=== PATIENT | male | born 1995 | race Caucasian/White ===

== ENCOUNTER → 2017-12-02 | Outpatient (CLI) | payer BC ==
[~2017-12-02] MED LIST: HYDR-757 PO
--- NOTE | 2017-12-02 16:59 | Diagnostic Imaging Report ---
PROCEDURE: MRI left joint lower extremity without contrast. TECHNIQUE: Multiplanar, multisequence non contrast-enhanced MRI of the left lower extremity was accomplished. INDICATION: Injury while running, left knee buckled and gave out. Instability since that time. Pain medially and laterally. COMPARISON: None. FINDINGS: No acute fracture or dislocation is seen in the left knee. Bone marrow signal is unremarkable. There is mild anterior translation of the tibia from the femur. There is a small left knee joint effusion. A small leaking Rosenberg's cyst is seen, with fluid leaking along the superficial fascia of the medial head of the gastrocnemius. The articular cartilage of the patellofemoral compartment appears intact. The articular cartilage in the medial and lateral compartments demonstrate mild heterogeneity with no large full-thickness defect seen. There is a complex bucket-handle tear of the medial meniscus, with the bucket-handle component flipped medially and anteriorly from the posterior horn and body. The residual posterior horn and body of the medial meniscus is markedly diminutive with complex tearing. This extends up into the anterior horn. The lateral meniscus demonstrates a complete radial tear posteriorly near the root. There is a complete tear of the anterior cruciate ligament. The posterior cruciate ligament is intact, but redundant. The medial collateral ligament demonstrates mild adjacent edema, likely related to the meniscal pathology, but appears intact. The lateral collateral ligamentous complex is intact. The extensor mechanism is intact. There is mild edema in Hoffa's fat pad. The surrounding soft tissues are otherwise unremarkable. IMPRESSION: 1. Complex bucket-handle tear of the medial meniscus in the right knee, flipped medially and anteriorly. 2. Full-thickness radial tear of the lateral meniscus near the posterior root. 3. Complete tear of the left anterior cruciate ligament. 4. Small left knee joint effusion. 5. Small leaking Rosenberg's cyst with fluid along the superficial fascia of the gastrocnemius. Dictated by: Dictated on workstation # [id number]
== END ==
LOC: RAD 15:55
PROVIDERS: ATTEND Nurse Practitioner Family
DX: S83.211A Bucket-handle tear of medial meniscus, current injury, right knee, initial encounter (principal); S83.281A Other tear of lateral meniscus, current injury, right knee, initial encounter; S83.511A Sprain of anterior cruciate ligament of right knee, initial encounter; M71.21 Synovial cyst of popliteal space [Baker], right knee; Y93.02 Activity, running
CPT/HCPCS: 73721

== ENCOUNTER 2019-01-07 08:30 | Emergency (ER) | payer BC ==
[~2019-01-07] VITALS: Ht 177 cm; Wt 84.4 kg
[~2019-01-07 08:30] MED LIST changes: -HURRICAINE EXT TUBE (BENZOCAINE) ONE; -HURRICAINE EXT TUBE (BENZOCAINE) XX PRN; -LACTATED RINGERS 1,000 ML IV ONE; -LACTATED RINGERS 1,000 ML IV STA; -MIDAZOLAM 2 MG/2 ML (VERSED) VIAL ONE; -OMEP40CA36 PO; -RANI150T90 PO; -SUCR1TAB36 PO; -proPOfol 200 MG/20 ML (DIPRIVAN) VIAL IV ONE
[2019-01-07] MEDS ORDERED: LACTATED RINGERS 1,000 ML IV ONE (10:15)
[2019-01-07] MEDS ORDERED: NS IV ONE (10:15)
[2019-01-07 10:22] LABS: BASOPHILS % (AUTO) 0 % (0-10); EOSINOPHILS # (AUTO) 0.1 10^3/uL (0.0-0.3); EOSINOPHILS % (AUTO) 1 % (0-10); HEMATOCRIT 40 % (40-54); HEMOGLOBIN 13.5 G/DL (13.3-17.7); LYMPHOCYTES # (AUTO) 1.7 X 10^3 (1.0-4.0); LYMPHOCYTES % (AUTO) 31 % (12-44); MEAN CORPUSCULAR HEMOGLOBIN 29 PG (25-34); MEAN CORPUSCULAR HGB CONC 33 G/DL (32-36); MEAN CORPUSCULAR VOLUME 86 FL (80-99); MEAN PLATELET VOLUME 9.9 FL (7.4-10.4); MONOCYTES # (AUTO) 0.8 X 10^3 (0.0-1.0); MONOCYTES % (AUTO) 15 % (0-12); NEUTROPHILS # (AUTO) 2.9 X 10^3 (1.8-7.8); NEUTROPHILS % (AUTO) 53 % (42-75); PLATELET COUNT 249 10^3/uL (130-400); RED CELL DISTRIBUTION WIDTH 13.2 % (10.0-14.5); WHITE BLOOD COUNT 5.6 10^3/uL (4.3-11.0)
--- NOTE | 2019-01-07 10:36 | ED GI ---
General Chief Complaint: Abdominal/GI Problems Stated Complaint: VOMITING BLOOD Nursing Triage Note: PT CO OF VOMITING BLOOD THIS AM AND HAVING DK STOOLS X3 YESTERDAY, SENT BY [facility] Sepsis Screen: No Definite Risk Source of Information: Patient Exam Limitations: No Limitations (W[place] VARNER MED STUDENT) History of Present Illness Date Seen by Provider: Jan 07, 2019 Time Seen by Provider: 10:20 Initial Comments The patient is a wd/wn 23 y/o male who is here with a chief complaint of vomiting blood. He states that this morning he vomited enough blood that it "turned the toilet water very red". He denies any previous occurrences. He is currently still nauseated but has not vomited since. The patient reports that he had 3 bouts of bloody bowel movements yesterday. He also reports subjective fever yesterday, mild shortness of breath for 3-4 days, and intermittent mild left lower quadrant abdominal pain. The patient admits to occasional heartburn/upper epigastric pain. He denies any diarrhea or recent illnesses. He admits to drinking up to 6 beers, 2-3 times per week. He reports that he last drank "a couple" beers on Friday. (W[employer] VARNER MED STUDENT) Timing/Duration: 1-3 Hours Severity/Quality: Mild, Aching Location: LLQ Radiation: No Radiation Activities at Onset: None Modifying Factors: Improves With Vomiting Associated Symptoms: No Fever/Chills; Nausea/Vomiting (JEFFREY CARRILLO MD) Allergies and Home Medications Allergies Coded Allergies: No Known Drug Allergies (Unverified , 12/24/13) Home Medications Hydrocodone Bit/Acetaminophen 1 Each Tablet, 1 EA PO Q6H PRN for MILD PAIN Prescribed by: PARMINDER MARTIN on 12/24/13 2230 Patient Home Medication List Home Medication List Reviewed: Yes (JEFFREY CARRILLO MD) Review of Systems Review of Systems Constitutional: No chills; fever EENTM: No Blurred Vision, No Double Vision Respiratory: Denies Cough; Shortness of Air Cardiovascular: Denies Chest Pain; Irregular Heart Rate Gastrointestinal: Blood Streaked Stools, Nausea, Vomiting ([employer] VARNER MED STUDENT) Constitutional: see HPI Respiratory: See HPI Gastrointestinal: See HPI Genitourinary: No Symptoms Reported Skin: no symptoms reported Psychiatric/Neurological: No Symptoms Reported (JEFFREY CARRILLO MD) All Other Systems Reviewed Negative Unless Noted: Yes (JEFFREY CARRILLO MD) Past Evznckh-Sdbhqz-Nxktcx Hx Past Med/Social Hx: Reviewed Nursing Past Med/Soc Hx (JEFFREY CARRILLO MD) Patient Social History Alcohol Use: Occasionally Uses Number of Drinks Today: 0 Recreational Drug Use: No Smoking Status: Never a Smoker Recent Foreign Travel: No Contact w/Someone Who Travel: No Recent Infectious Disease Expo: No Recent Hopitalizations: No (W[employer] VARNER STUDENT) Past Medical History Surgeries: Yes (R FA, L KNEE SCOPE) Respiratory: No Cardiac: No Neurological: No Reproductive Disorders: No Gastrointestinal: No Musculoskeletal: No Endocrine: No Cancer: No Psychosocial: No Integumentary: No Blood Disorders: No (W[employer] VARNER STUDENT) Family Medical History Reviewed Nursing Family Hx (JEFFREY CARRILLO MD) Physical Exam Vital Signs Vital Signs - First Documented 01/07/19 08:48 Temp 37.4 Pulse 75 Resp 18 B/P (MAP) 151/78 (102) Pulse Ox 98 (JEFFREY CARRILLO MD) Vital Signs Capillary Refill : Less Than 3 Seconds (WASHINGTON VARNER STUDENT) Height/Weight/BMI Height: 5'10" Weight: 155lbs. oz. 70.706643ez; 26.00 BMI Method:Stated General Appearance: WD/WN, no apparent distress Respiratory: chest non-tender, lungs clear, normal breath sounds Cardiovascular: regular rate, rhythm, no edema, no murmur Gastrointestinal: normal bowel sounds, soft, tenderness Rectal: normal exam, normal rectal tone, heme negative stool Back: normal inspection, no CVA tenderness, no vertebral tenderness Neurologic/Psychiatric: no motor/sensory deficits, alert, normal mood/affect, oriented x 3 Skin: normal color, warm/dry (WASHINGTON VARNER STUDENT) General Appearance: WD/WN, no apparent distress HEENT: PERRL/EOMI, pharynx normal Neck: full range of motion, supple Respiratory: lungs clear, normal breath sounds Cardiovascular: regular rate, rhythm, no murmur Gastrointestinal: non tender, soft Extremities: non-tender, normal inspection Back: normal inspection, no CVA tenderness, no vertebral tenderness Neurologic/Psychiatric: alert, normal mood/affect, oriented x 3 Skin: normal color, warm/dry (JEFFREY CARRILLO MD) Progress/Results/Core Measures Results/Orders Lab Results Laboratory Tests Test 01/07/19 10:10 01/07/19 10:21 Range/Units White Blood Count 5.6 4.3-11.0 10^3/uL Red Blood Count 4.68 4.35-5.85 10^6/uL Hemoglobin 13.5 13.3-17.7 G/DL Hematocrit 40 40-54 % Mean Corpuscular Volume 86 80-99 FL Mean Corpuscular Hemoglobin 29 25-34 PG Mean Corpuscular Hemoglobin Concent 33 32-36 G/DL Red Cell Distribution Width 13.2 10.0-14.5 % Platelet Count 249 130-400 10^3/uL Mean Platelet Volume 9.9 7.4-10.4 FL Neutrophils (%) (Auto) 53 42-75 % Lymphocytes (%) (Auto) 31 12-44 % Monocytes (%) (Auto) 15 H 0-12 % Eosinophils (%) (Auto) 1 0-10 % Basophils (%) (Auto) 0 0-10 % Neutrophils # (Auto) 2.9 1.8-7.8 X 10^3 Lymphocytes # (Auto) 1.7 1.0-4.0 X 10^3 Monocytes # (Auto) 0.8 0.0-1.0 X 10^3 Eosinophils # (Auto) 0.1 0.0-0.3 10^3/uL Basophils # (Auto) 0.0 0.0-0.1 10^3/uL Sodium Level 140 135-145 MMOL/L Potassium Level 3.8 3.6-5.0 MMOL/L Chloride Level 107 98-107 MMOL/L Carbon Dioxide Level 24 21-32 MMOL/L Anion Gap 9 5-14 MMOL/L Blood Urea Nitrogen 18 7-18 MG/DL Creatinine 1.07 0.60-1.30 MG/DL Estimat Glomerular Filtration Rate > 60 BUN/Creatinine Ratio 17 Glucose Level 91 70-105 MG/DL Calcium Level 9.2 8.5-10.1 MG/DL Corrected Calcium 9.0 8.5-10.1 MG/DL Total Bilirubin 0.3 0.1-1.0 MG/DL Aspartate Amino Transf (AST/SGOT) 16 5-34 U/L Alanine Aminotransferase (ALT/SGPT) 15 0-55 U/L Alkaline Phosphatase 37 L 40-136 U/L Total Protein 6.8 6.4-8.2 GM/DL Albumin 4.3 3.2-4.5 GM/DL Urine Color YELLOW Urine Clarity CLEAR Urine pH 8 5-9 Urine Specific Grimes 1.015 L 1.016-1.022 Urine Protein NEGATIVE NEGATIVE Urine Glucose (UA) NEGATIVE NEGATIVE Urine Ketones NEGATIVE NEGATIVE Urine Nitrite NEGATIVE NEGATIVE Urine Bilirubin NEGATIVE NEGATIVE Urine Urobilinogen NORMAL NORMAL MG/DL Urine Leukocyte Esterase NEGATIVE NEGATIVE Urine RBC (Auto) NEGATIVE NEGATIVE Urine RBC NONE /HPF Urine WBC NONE /HPF Urine Crystals NONE /LPF Urine Amorphous Sediment FEW SHANELLE PHOSPHATE H /LPF Urine Bacteria NEGATIVE /HPF Urine Casts NONE /LPF Urine Mucus NEGATIVE /LPF Urine Culture Indicated NO (JEFFREY CARRILLO MD) My Orders Orders - JEFFREY CARRILLO MD Cbc With Automated Diff (01/07/19 10:15) Comprehensive Metabolic Panel (01/07/19 10:15) Ua Culture If Indicated (01/07/19 10:15) Ed Iv/Invasive Line Start (01/07/19 10:15) Lactated Ringers (Lr 1000 Ml Iv Solution (01/07/19 10:15) Ns Iv 1000 Ml (Sodium Chloride 0.9%) (01/07/19 10:15) Fecal Occult Bedside (01/07/19 10:16) Chest Pa/Lat (2 View) (01/07/19 10:48) (JEFFREY CARRILLO MD) Medications Given in ED Current Medications Medications Dose Ordered Sig/Wolf Route Start Time Stop Time Status Last Admin Dose Admin Lactated Ringer's 1,000 ml @ 0 mls/hr Q0M ONCE IV 01/07/19 10:15 01/07/19 10:16 DC 01/07/19 10:31 1,000 MLS/HR (JEFFREY CARRILLO MD) Vital Signs/I&O 01/07/19 08:48 Temp 37.4 Pulse 75 Resp 18 B/P (MAP) 151/78 (102) Pulse Ox 98 (JEFFREY CARRILLO MD) Blood Pressure Mean: 102 Fecal Occult: Negative (W[employer] VARNER MED STUDENT) Progress Progress Note : Time: 10:30 Progress Note The patient is resting comfortably in the exam room. He will be evaluated with CBC, CMP, UA, and fecal occult blood tests. (W[employer] VARNER MED STUDENT) Progress Note : Progress Note As seen and evaluated the patient and agree with above except as indicated. Have directed the plan of care. Patient is here with vomiting blood today. Reports dark stools yesterday. Questionable fevers. States hasn't felt well and a couple days. Does drink a couple times a week. He is a student. We will check labs, UA and chest x-ray. Fecal occult blood test done and is negative. Monitor patient. 1155: Labs and chest x-ray reviewed. No acute findings. I did discuss the case with Dr. Kay and he will see him in office today at 1 PM. This was discussed with the patient who is in agreement. Discharged home with return precautions. Patient verbalize understanding instructions and agreement with plan. (JEFFREY CARRILLO MD) Diagnostic Imaging Diagonstic Imaging: Xray Plain Films/CT/US/NM/MRI: chest Comments [facility]. [place], [place] NAME: JAYCE MAGUIRE [facility] REC#: [id number] PT STATUS: REG ER : 1995 PHYSICIAN: JEFFREY CARRILLO MD ADMIT DATE: 01/07/19/ER Draft Date of Exam:01/07/19 CHEST PA/LAT (2 VIEW) INDICATION: Vomiting blood. TIME OF EXAM: 11:12 AM No prior studies are available for comparison. FINDINGS: The heart size is normal. The pulmonary vascularity is unremarkable. The lungs are clear. No infiltrate, effusion or pneumothorax is detected. IMPRESSION: No acute cardiopulmonary process is detected. Dictated on workstation # [id number] Dict: 01/07/19 1128 Trans: 01/07/19 1131 [id number] Interpreted by: ZULLY NAVA MD Electronically signed by: (JEFFREY CARRILLO MD) Departure Impression Primary Impression: Hematemesis Qualified Codes: K92.0 - Hematemesis Disposition: HOME, SELF-CARE Condition: Improved Departure-Patient Inst. Decision time for Depature: 11:57 (JEFFREY CARRILLO MD) Referrals: AZRA KAY FLOYD R MD (PCP/Family) Primary Care Physician Patient Instructions: Gastrointestinal Bleeding (DC) Add. Discharge Instructions: All discharge instructions reviewed with patient and/or family. Voiced understanding. You will follow-up with Dr. Kay's at his office at 1245. See him at that time and follow his instructions for further care. Return for worse pain, fever, vomiting, blood in your vomit or stool or other concerns as needed. Copy Copies To 1: AZRA KAY JOSHUA K MED STUDENT Jan 07, 2019 10:36 JEFFREY CARRILLO MD Jan 07, 2019 11:59
[2019-01-07 10:38] LABS: BILIRUBIN,URINE NEGATIVE (NEGATIVE); CLARITY,URINE CLEAR; COLOR,URINE YELLOW; GLUCOSE, URINE (UA) NEGATIVE (NEGATIVE); KETONES,URINE NEGATIVE (NEGATIVE); LEUKOCYTE ESTERASE ,URINE NEGATIVE (NEGATIVE); NITRITE,URINE NEGATIVE (NEGATIVE); PH,URINE 8 (5-9); PROTEIN,URINE NEGATIVE (NEGATIVE); UROBILINOGEN,URINE NORMAL (NORMAL)
[2019-01-07 10:42] LABS: ALANINE AMINOTRANSFERASE 15 U/L (0-55); ALBUMIN 4.3 GM/DL (3.2-4.5); ALKALINE PHOSPHATASE 37 U/L (40-136); BILIRUBIN,TOTAL 0.3 MG/DL (0.1-1.0); BUN/CREATININE RATIO 17; CALCIUM 9.2 MG/DL (8.5-10.1); CARBON DIOXIDE 24 MMOL/L (21-32); CHLORIDE 107 MMOL/L (98-107); CREATININE SERUM 1.07 MG/DL (0.60-1.30); GFR ESTIMATED > 60; GLUCOSE 91 MG/DL (70-105); POTASSIUM 3.8 MMOL/L (3.6-5.0); SODIUM 140 MMOL/L (135-145); TOTAL PROTEIN 6.8 GM/DL (6.4-8.2)
[2019-01-07 10:47] LABS: AMORPHOUS SEDIMENT,UR FEW AMOR PHOSPHATE /LPF; BACTERIA,URINE NEGATIVE /HPF
--- NOTE | 2019-01-07 11:31 | Diagnostic Imaging Report ---
INDICATION: Vomiting blood. TIME OF EXAM: 11:12 AM No prior studies are available for comparison. FINDINGS: The heart size is normal. The pulmonary vascularity is unremarkable. The lungs are clear. No infiltrate, effusion or pneumothorax is detected. IMPRESSION: No acute cardiopulmonary process is detected. Dictated by: Dictated on workstation # [id number]
[2019-01-07 12:28] VITALS: BP 151/78
[2019-01-07] MEDS ORDERED: RANI150T90 PO ×2 (16:03)
[2019-01-07] MEDS ORDERED: OMEP40CA36 PO ×2 (16:03)
[2019-01-07] MEDS ORDERED: SUCR1TAB36 PO ×2 (16:03)
== END 2019-01-07 12:28 | disposition home or self-care (01) ==
LOC: EDUNIT# 08:30 → ER 08:31
DX: K92.0 Hematemesis (principal)
CPT/HCPCS: 36415; 71046; 80053; 81000; 82274; 85025

== ENCOUNTER → 2019-01-07 | Outpatient (CLI) | payer BC ==
[2019-01-07] VITALS (7 sets, daily range): BP systolic 124–148; BP diastolic 60–85
[~2019-01-07] VITALS: Ht 177.8 cm; Wt 84.5 kg
[~2019-01-07] MED LIST changes: +HURRICAINE EXT TUBE (BENZOCAINE) ONE; +HURRICAINE EXT TUBE (BENZOCAINE) XX PRN; +LACTATED RINGERS 1,000 ML IV ONE; +LACTATED RINGERS 1,000 ML IV STA; +MIDAZOLAM 2 MG/2 ML (VERSED) VIAL ONE; +OMEP40CA36 PO; +RANI150T90 PO; +SUCR1TAB36 PO; +proPOfol 200 MG/20 ML (DIPRIVAN) VIAL IV ONE
--- NOTE | 2019-01-07 16:00 | Progress Note-Post Operative ---
Post-Operative Progess Note Surgeon (s)/Rubber Goods Supervisor (s) Surgeon AZRA KAY DO Rubber Goods Supervisor: none Pre-Operative Diagnosis Hematemesis, Melena Post-Operative Diagnosis Hemorrhagic Gastritis with active bleeding Procedure & Operative Findings Date of Procedure 01/07/19 Procedure Performed/Findings EGD with bx Anesthesia Type IV sedation by Anesthesia Estimated Blood Loss Estimated blood loss (mL): scant Specimens/Packing Specimens Removed Antral bx Body of stomach bx GE jxn bx AZRA KAY DO Jan 07, 2019 16:00
--- NOTE | 2019-01-07 16:04 | Endoscopy Discharge Instruct ---
Endo Procedure/Findings Findings 1.: Gastritis Discharge Instructions - Activity: You might feel a little sleepy until tomorrow. This is due to the medicine you received to relax you. Until tomorrow, you should: NOT drive a car, operate machinery or power tools. NOT drink any alcoholic beverages. NOT make any important decisions or sign importortant papers. Do not return to work until tomorrow, unless otherwise instructed. Resume previous activities tomorrow. Diet: Start by taking liquids. If you tolerate liquids, advance to solid food. make an appointment for one week 1.: EGD in 6-8 weeks Notify Physician - If you experience excessive bleeding, unusual abdominal pain, fever, or chest pain, contact your doctor immediately. AZRA KAY DO Jan 07, 2019 16:04
--- NOTE | 2019-01-07 21:59 | OPERATIVE REPORT ---
DATE OF SERVICE: PREOPERATIVE DIAGNOSES: Hematemesis and melena. POSTOPERATIVE DIAGNOSIS: Hemorrhagic gastritis with active bleeding. PROCEDURE: EGD with biopsy. SURGEON: Federico Cali DO. TELLER: None. ANESTHESIA: IV sedation by the anesthesiologist. SPECIMEN: Biopsy from the antrum, biopsy from the body of stomach, biopsy from the GE junction. BLOOD LOSS: Scant. FLUIDS: Per anesthesia. POSTOPERATIVE CONDITION: Stable. INDICATION FOR PROCEDURE: The patient is a 23-year-old male who this morning had an episode of emesis and it saw bright red blood and some dark blood. Also reported that he had some melena yesterday when he had a bowel movement. FINDINGS: The patient actually had active severe gastritis, possibly hemorrhagic gastritis, could actually see small punctate bleeding. PROCEDURE NOTE: After informed consent was obtained, the patient was brought to the endoscopy suite and placed in the bed in left lateral decubitus position. He was administered IV sedation by the anesthesiologist who then monitored his vitals the entire time, heart rate, blood pressure and pulse ox and the scope was inserted down the mouth through the esophagus into the stomach. Upon entering the stomach, noted some gastritis, pushed forward to the antrum, took a picture, then pushed into duodenum. Duodenum looked fine. Pulled back into the antrum, did a biopsy of the antrum and then retroflexed the scope and saw some severe almost hemorrhagic gastritis, small punctate bleeding from all over the body of the stomach, did some biopsies here. There was some clotted blood, bright red and dark in the upper abdomen, flushed all this away and could just see no ulcers, but just the punctate bleeding at this point, pulled back into the esophagus, took a biopsy of the GE junction and then pulled this out and then pushed the scope back in, suctioned out all the air and then pulled the scope up the esophagus and out the mouth. The patient tolerated the procedure, recovered in endoscopy suite. Job ID: [id number] DocumentID: [id number] Dictated Date: 01/07/2019 16:37:47 Special Effects Artist Date: 01/07/2019 21:58:55 Dictated By: FEDERICO CALI DO
--- NOTE | 2019-01-08 07:05 | Anesthesia-General Post-Op ---
MAC Patient Condition Mental Status/LOC: Same as Preop Cardiovascular: Satisfactory Nausea/Vomiting: Absent Respiratory: Satisfactory Pain: Controlled Complications: Absent Post Op Complications Complications None Follow Up Care/Instructions Patient Instructions None needed. Anesthesiology Discharge Order Discharge Order Post-dated progress note (Pt seen 01-07-19 at 1605) Patient was doing well, no complaints, stable vital signs, no apparent adverse anesthesia problems. He tolerated the procedure well. CHARLENE CHICAS DO Jan 08, 2019 07:05
== END ==
LOC: SDC 13:59
PROVIDERS: ATTEND Surgery
DX: K92.0 Hematemesis (principal); K92.1 Melena

== ENCOUNTER → 2019-03-05 | Outpatient (CLI) | payer BC ==
[~2019-03-05] MED LIST changes: +OMEP40CA36 PO; +RANI150T90 PO; +SUCR1TAB36 PO
--- NOTE | 2019-03-05 09:19 | Diagnostic Imaging Report ---
INDICATION: Hypertension TECHNIQUE: Multiple real-time grayscale sonographic images, color and duplex Doppler images were obtained of the urinary system. FINDINGS: Aortic velocity: 70 cm/sec. RIGHT kidney: Size: 10.4 x 5.4 x 5.0 cm The right renal parenchyma and collecting system appear unremarkable. The right renal artery is visualized in its proximal, mid and distal aspect. Maximum renal artery velocity: 67cm/sec Maximum renal artery/aortic ratio: 1.0 LEFT kidney: Size: 11.3 x 4.7 x 7.2 cm The left renal parenchyma and collecting system appear unremarkable. The left renal artery is visualized in its proximal, mid and distal aspect. Maximum renal artery velocity: 121cm/sec Maximum renal artery/aortic ratio: 1.7 Bladder: The urinary bladder is unremarkable with visualization of bilateral ureteral jets. IMPRESSION: 1. Unremarkable renal ultrasound with doppler. (RA/AO ratios > 3.0 may suggest potential hemodynamically significant stenosis.) Dictated by: Dictated on workstation # [id number]
== END ==
LOC: RAD 07:55
PROVIDERS: ATTEND Family Medicine
DX: I10 Essential (primary) hypertension (principal)
CPT/HCPCS: 76770; 93975